=== PATIENT | male | born 1985 | race Caucasian/White ===

== ENCOUNTER 2023-05-04 15:44 | Emergency (ER) | payer SELFPAY ==
--- NOTE | 2023-05-04 15:50 | ECG_ITS ---
APPROVED REPORT Exam: Resting ECG HR:80 bpm ECG Measurements Heart Rate 80 AXES [place] 184 P 60 QRSd 94 QRS 75 QT 351 T 39 QTc 387 Conclusion SINUS RHYTHM WITH OCCASIONAL ECTOPIC PREMATURE COMPLEXES NONSPECIFIC T-WAVE ABNORMALITY BORDERLINE ECG UNCONFIRMED REPORT Electronically signed by : Lefty Sommers MD 05/04/2023 20:44:19
[2023-05-04 15:58] LABS: POC Glucose,Bedside 102 (70-110)
[2023-05-04 16:00] VITALS: BP 130/93; PULSE 77; O2SAT 98
[2023-05-04 16:13] VITALS: BP 130/83; PULSE 83; RESP 20; TEMP 37; O2SAT 98; BMI 27.5
--- NOTE | 2023-05-04 16:25 | [facility].EDGENADL ---
Discharge Plan Disposition Patient Disposition: Home, Self-Care Condition: Good Prescriptions Prescriptions: New ondansetron 4 mg tablet,disintegrating 4 mg PO Q6H PRN (Reason: nausea and vomiting) Qty: 20 0RF Referrals Follow up/Referrals: Provider,Referral, MD [Primary Care Provider] - See instructions Activity Restrictions/Add. Instructions Additional Instructions/Restrictions: Please follow-up with your primary care provider. Please return to the emergency department if you develop any new or worsening symptoms or become concerned for your health. Please take Zofran as needed for nausea and vomiting. Clinical Impressions Clinical Impression: Dehydration Discharge ED Provider: Ted Barber Adult HPI General Chief complaint: Recheck/Abnormal Lab/Rx Stated complaint: cannot urinate, dizzy, back pain Time Seen by Provider: 05/04/23 16:00 Mode of Arrival: Ambulatory Source of Information: Patient Limitations: No Limitations Description of Symptoms (Recalled from ER Triage Doc. by RN): pt to ed c/o decrease in urination and dry mouth. pt denies a hx of diabetes. pt reports excessive sweating. History of Present Illness HPI narrative: 37-year-old male reported history of kidney stones in the past presents with multiple complaints. Reports nausea, bilateral CVA pain, decreased urine output, burning with urination. Reports he is sexually active, denies any genital lesions or purulent discharge. No fevers though feels subjectively hot and chills at home. Reports that he has been drinking at home but feels like he is not staying hydrated. CVA pain is bilateral, constant, dull. No abdominal pain. Related Data Previous Rx's Medication Instructions Recorded ondansetron 4 mg disintegrating 4 mg PO Q6H PRN nausea and 05/04/23 tablet vomiting #20 tabs Allergies Allergy/AdvReac Type Severity Reaction Status Date / Time Iodine Allergy Mild I-RASH Uncoded 09/14/17 14:59 [facility] Disclaimer: The information contained in this section may have been updated after the patient was seen, as this information can be updated by other users. Social History Smoking Status: Never smoker alcohol intake: never current occupational status: other Travel in the last 8 weeks: None ROS Obtained: Yes All systems reviewed & no additional complaints except as documented Physical Exam General General appearance: alert and in no apparent distress Head Head exam: atraumatic and normocephalic Eye Eye exam: Present normal appearance, PERRL and EOMI ENT ENT exam: Present mucous membranes dry and normal external ear exam Neck Neck exam: Present normal inspection and full ROM Chest Chest inspection: Present normal inspection and symmetric chest wall rise; Absent tenderness Respiratory Respiratory exam: Present normal lung sounds bilaterally; Absent respiratory distress Cardiovascular Cardiovascular exam: Present regular rate and normal rhythm Abdominal Exam Abdominal exam: Present soft; Absent distention, tenderness or guarding Extremities Exam Extremities exam: Present normal inspection; Absent edema or joint swelling Back Exam Back exam: Present normal inspection and tenderness (Lumbar paraspinal/CVA bilaterally) Neurological Exam Neurological exam: Present alert and oriented X3; Absent motor sensory deficit Psychiatric Psychiatric exam: Present normal affect and normal mood Skin Skin exam: Present warm, dry and normal color Lymphatic Lymphatic Findings: no adenopathy Medical Decision Making Medical Records Medical records reviewed: Yes I reviewed the patient's medical records. Ronald Inquiry Pt receiving controlled substance: No Ronald was queried for this patient: No Vital Signs: 05/04/23 16:13 05/04/23 16:00 05/04/23 16:30 Temperature 98.6 F Temperature Source Oral Pulse Rate 77 84 Pulse Rate [Left Radial] 83 Respiratory Rate 20 Blood Pressure 130/93 H 136/94 H Blood P
[2023-05-04 16:30] VITALS: BP 136/94; PULSE 84; O2SAT 100
[2023-05-04 16:55] LABS: Microscopic, Urine URINE MICROSCOPIC (MICROSCOPIC)
[2023-05-04 17:00] VITALS: BP 149/83; PULSE 70; O2SAT 97
[2023-05-04 17:04] LABS: Basophils % 0.6 % (0.1-2.0); Eosinophils # 0.3 K/mm3 (0.0-0.4); Eosinophils % 5.2 % (0.1-12.0); Hematocrit 55.1 % (42.0-52.0); Lymphocytes # 1.9 K/mm3 (0.7-4.5); Lymphocytes % 30.7 % (10-50); Mean Corpuscular HGB Conc 33.5 g/dL (31.8-35.4); Mean Corpuscular Hemoglobin 31.6 pg (27.0-31.2); Mean Corpuscular Volume 94.5 fl (80-94); Mean Platelet Volume 8.6 fl (7.4-10.4); Monocytes # 0.4 K/mm3 (0.1-1.0); Monocytes % 6.4 % (1.7-9.3); Neutrophils # 3.5 K/mm3 (1.8-7.8); Neutrophils % 57.2 % (37.0-80.0); Platelet Count 228 K/mm3 (142-424); Red Blood Count 5.84 M/mm3 (4.60-6.20); Red Cell Distribution Width 13.1 % (11.5-17.5); White Blood Count 6.2 K/mm3 (4.8-10.8)
[2023-05-04 17:11] LABS: Hemoglobin 18.5 g/dL (14.1-18.0)
[2023-05-04 17:13] LABS: Appearance,Urine CLEAR (Clear); Blood, Urine TRACE-I (Negative); Color,Urine YELLOW (Yellow); Glucose,Urine (UA) Negative (Negative); Ketones,Urine Negative (Negative); Leukocyte Esterase,Urine Negative (Negative); Nitrate,Urine Negative (Negative); Protein,Urine Negative (Negative); Specific Gravity, Urine 1.025 (1.005-1.030)
[2023-05-04 17:16] LABS: Bilirubin,Urine 1+ (Negative)
[2023-05-04 17:19] LABS: Alanine Aminotransferase 26 U/L (12-78); Albumin Level 4.7 g/dl (3.5-5.0); Albumin/Globulin Ratio 1.6 (1.1-1.8); Alkaline Phosphatase 48 U/L (38-126); Anion Gap 11.5 mEq/L (5-15); Aspartate Amino Transferase 31 U/L (17-59); Blood Urea Nitrogen 18 mg/dl (9-20); Calcium 9.6 mg/dl (8.4-10.2); Carbon Dioxide 28 mmol/L (22.0-30.0); Chloride 106 mmol/L (98-107); Creatinine Clearance Estimated 132 mL/min (50-200); Estimated Glomerular Filt Rate 76 ml/min (>60); GFR (African American) 92 ML/MIN (>60); Glucose 94 mg/dl (74-100); Potassium 4.5 mmoL/L (3.5-5.1); Sodium 141 mmol/L (136-145); Total Protein,Serum 7.7 g/dl (6.3-8.2)
[2023-05-04 17:29] LABS: Bacteria,Urine Trace /lpf; Mucus,Urine 3+ /lpf; RBC,Urine Occasional #/hpf (0-3); Squamous Epithelial Cell,Urine Occasional #/hpf (0-5)
[2023-05-04 17:30] VITALS: BP 139/93; PULSE 69; O2SAT 98
[2023-05-04 17:46] VITALS: BP 139/93; PULSE 71; RESP 20; TEMP 37; O2SAT 98
[2023-05-06 22:14] LABS: Neisseria gonorrhoeae, NAA Negative (Negative)
== END 2023-05-04 17:47 | disposition home or self-care (01) ==
PROVIDERS: Emergency Provider Emergency Medicine
DX: E86.0 Dehydration (principal); R42 Dizziness and giddiness; R34 Anuria and oliguria; R11.0 Nausea; E11.9 Type 2 diabetes mellitus without complications
CPT/HCPCS: 80053; 81001; 82962; 85025; 87491; 87591; 93005; 96361; 96374; 96375; 99285; J2405